=== PATIENT | female | born 1995 | race African-American/Black ===

== ENCOUNTER 2023-04-22 13:31 | Emergency (ER) | payer OTHER ==
[2023-04-22] VITALS (11 sets, daily range): BP systolic 102–115; BP diastolic 65–72
[~2023-04-22] VITALS: Ht 167.6 cm; Wt 53.0 kg
[2023-04-22 14:12] LABS: BASO% 0.3 % (0-3); EOS% 0.1 % (0-8); HEMATOCRIT 31.2 % (37.0-47.0); HEMOGLOBIN 9.7 g/dl (12.0-16.0); IMMATURE GRANULOCYTES 0.3 % (0.0-5.0); LYMPH% 8.7 % (15-41); MEAN CELL VOLUME 76.8 fL CALC (80.0-100.0); MEAN CORPUSCULAR HGB 23.9 pG CALC (26.0-32.0); MEAN CORPUSCULAR HGB CONC 31.1 g/dL CAL (32.0-36.0); MONO% 4.8 % (2-13); NEUT# 8.57 thou/uL (2.00-7.15); NEUT% 85.8 % (42-76); RED BLOOD COUNT 4.06 mill/uL (4.20-5.60); RED CELL DISTRI WIDTH 15.5 % (11.5-15.5)
[2023-04-22 14:21] LABS: ALKALINE PHOSPHATASE 55 u/l (38-126); ANION GAP 11 (6-22 (CALC)); BILIRUBIN, TOTAL 0.4 mg/dL (0.02-1.3); BUN 11 mg/dL (7-17); BUN/CREATININE RATIO 11 (12-20 (CALC)); CARBON DIOXIDE 24 mmol/l (22-30); CHLORIDE 106 mmol/l (95-108); GFR FOR AFR.AMER. > 60 ML/MIN (>=60 (CALC)); GFR OTHER RACES > 60 ML/MIN (>=60 (CALC)); POTASSIUM 3.9 mmol/l (3.5-5.1); SGOT/AST 25 u/l (14-36); SODIUM 136 mmol/l (137-146); TOTAL PROTEIN 8.3 g/dL (6.3-8.2)
[2023-04-22 14:52] LABS: TSH, 3RD GENERATION 0.87 uIU/mL (0.47 - 4.68)
== END 2023-04-22 16:41 | disposition home or self-care (01) | DRG 880 ==
LOC: ED 13:31
PROVIDERS: Family Medicine
DX: F41.9 Anxiety disorder, unspecified (principal)